=== PATIENT | male | born 1960 | race Caucasian/White ===

== ENCOUNTER 2021-06-14 05:02 | Day surgery (SDC) | payer OTHER | END 2021-06-14 14:45 | disposition home or self-care (01) | LOC: CIR.AMB 05:02 | PROVIDERS: ATTEND Specialist | DX: K40.90 Unilateral inguinal hernia, without obstruction or gangrene, not specified as recurrent (principal); Z20.822 Contact with and (suspected) exposure to COVID-19 ==